=== PATIENT | female | born 1940 | race Caucasian/White ===

== ENCOUNTER 2019-02-18 22:31 | Emergency (ER) | payer MEDICARE ==
--- NOTE | 2019-02-18 23:00 | NUR ---
PATIENT WAS CALLED SEVERAL TIMES TO BE TRAIGED. PATIENT WAS NOT PRESENT.
== END 2019-02-19 01:39 | disposition left against medical advice (07) ==
LOC: ER 22:31
DX: Z53.21 Procedure and treatment not carried out due to patient leaving prior to being seen by health care provider (principal)